=== PATIENT | male | born 1985 | race Caucasian/White ===

== ENCOUNTER → 2017-03-15 | Outpatient (CLI) | payer OTHER ==
[~2017-03-15] MED LIST: PEPCID COMPLETE1 CTB PO
== END ==
LOC: COL.RAD 07:50
DX: K21.9 Gastro-esophageal reflux disease without esophagitis (principal); R12 Heartburn; R11.10 Vomiting, unspecified; R13.10 Dysphagia, unspecified; R07.9 Chest pain, unspecified
CPT/HCPCS: A9541

== ENCOUNTER 2017-03-18 08:47 | Day surgery (SDC) | payer OTHER ==
[~2017-03-18] VITALS: Ht 175.3 cm; Wt 90.7 kg
[2017-03-18] MEDS ORDERED: PEPCID COMPLETE1 CTB PO (08:59)
[2017-03-18 09:00] VITALS: BP 125/97; PULSE 68; TEMP 97.8
[2017-03-18 10:15] VITALS: BP 118/82; PULSE 90; TEMP 97.6
[2017-03-18 10:30] VITALS: BP 116/82; PULSE 71
== END 2017-03-18 10:55 | disposition home or self-care (01) ==
LOC: SDCO 08:47
DX: K21.0 Gastro-esophageal reflux disease with esophagitis (principal); K44.9 Diaphragmatic hernia without obstruction or gangrene; Z79.899 Other long term (current) drug therapy; Z87.891 Personal history of nicotine dependence
CPT/HCPCS: J2250; J3010; J7030

== ENCOUNTER → 2017-03-24 | Outpatient (REF) | LOC: WSOH 14:00 | DX: Z02.89 Encounter for other administrative examinations (principal) ==